=== PATIENT | female | born 1970 | race Caucasian/White ===

== ENCOUNTER → 2017-07-28 | Outpatient (CLI) | payer OTHER ==
[~2017-07-28] MED LIST: PERCOCET 5/31 TABLET PO
== END | disposition home or self-care (01) ==
LOC: RAD 09:10
DX: K80.20 Calculus of gallbladder without cholecystitis without obstruction (principal)
CPT/HCPCS: 76705

== ENCOUNTER 2017-09-07 07:29 | Day surgery (SDC) | payer OTHER ==
[~2017-09-07] VITALS: Ht 165.1 cm; Wt 74.0 kg
[~2017-09-07 07:29] MED LIST changes: +ZANTAC150 MG PO; +ZOFRAN4 MG PO
[2017-09-07 08:06] VITALS: BP 143/69
[2017-09-07] MEDS ORDERED: NORCO 5/3251 TABLET PO (11:26)
[2017-09-07 12:21] VITALS: BP 116/63
== END 2017-09-07 14:10 | disposition home or self-care (01) ==
LOC: SDC 07:29
PROC: 0FT44ZZ Resection of Gallbladder, Percutaneous Endoscopic Approach (ICD-10-PCS; principal; 2017-09-07)
DX: K80.10 Calculus of gallbladder with chronic cholecystitis without obstruction (principal); K66.0 Peritoneal adhesions (postprocedural) (postinfection); K21.9 Gastro-esophageal reflux disease without esophagitis; J44.9 Chronic obstructive pulmonary disease, unspecified; Z87.891 Personal history of nicotine dependence
CPT/HCPCS: 88304; J0131; J0690; J1885; J2405; J3010